=== PATIENT | male | born 1995 | race Caucasian/White ===

== ENCOUNTER 2019-04-25 09:26 | Emergency (ER) | payer OTHER ==
[2019-04-25] MEDS ORDERED: Morphine 2 MG/ML Syringe IVPUSH ONE (09:37)
[2019-04-25] MEDS ORDERED: Sodium Chloride 0.9% 1,000 ML IV ONE (09:37)
[2019-04-25] MEDS ORDERED: ceFAZolin 1 GM in Premix Bag 1 BAG IV ONE (09:37)
[2019-04-25] MEDS ORDERED: Ondansetron 4 MG/2 ML SDV IVPUSH ONE (09:37)
[2019-04-25] MEDS ORDERED: Diphtheria,Pertussis(Acell),Tetanus Vaccine 0.5 ML Syringe IM ONE (09:45)
--- NOTE | 2019-04-25 09:47 | EDM.PDOC ---
ED HPI GENERAL MEDICAL PROBLEM - General Chief Complaint: Upper Extremity Injury/Pain Stated Complaint: CUT FINGER OFF Time Seen by Provider: 04/25/19 09:33 - History of Present Illness INITIAL COMMENTS - FREE TEXT/NARRATIVE: HISTORY AND PHYSICAL: History of present illness: Patient 24-year-old white male who presents status post right hand injury in which he sustained an amputation to the distal third of the second digit of his right hand this occurred at work patient denies up-to-date tetanus Review of systems: As per history of present illness and below otherwise all systems reviewed and negative. Past medical history: As per history of present illness and as reviewed below otherwise noncontributory. Surgical history: As per history of present illness and as reviewed below otherwise noncontributory. Social history: No reported history of drug or alcohol abuse. Family history: As per history of present illness and as reviewed below otherwise noncontributory. Physical exam: HEENT: Atraumatic, normocephalic, pupils reactive, negative for conjunctival pallor or scleral icterus, mucous membranes moist, throat clear, neck supple, nontender, trachea midline. Lungs: Clear to auscultation, breath sounds equal bilaterally, chest nontender. Heart: S1S2, regular, negative for clicks, rubs, or JVD. Abdomen: Soft, nondistended, nontender. Negative for masses or hepatosplenomegaly. Negative for costovertebral tenderness. Pelvis: Stable nontender. Genitourinary: Deferred. Rectal: Deferred. Extremities: Patient has an amputation of the distal third of the second digit of his right hand digit was wrapped with moist gauze and placed on ice there is good hemostasis. Neuro: Awake, alert, oriented. Cranial nerves II through XII unremarkable. Cerebellum unremarkable. Motor and sensory unremarkable throughout. Exam nonfocal. Diagnostics: X-ray right hand Therapeutics: Saline 1 L bolus Ancef 2 g IV morphine sulfate 2 mg IV Zofran 4 mg IV wound was irrigated with copious amounts 0.9 normal saline and dressed with wet-to-dry dressing Impression: #1 right hand injury (partial amputation second digit right hand) Definitive disposition and diagnosis as appropriate pending reevaluation and review of above. RIGHT INDEX FINGER Pain Score (Numeric/FACES): 5 Past Medical History - Infectious Disease History Infectious Disease History: Reports: None - Past Surgical History GI Surgical History: Reports: Appendectomy Social & Family History - Family History Family Medical History: Noncontributory - Tobacco Use Smoking Status *Q: Former Smoker Years of Tobacco use: 6 Packs/Tins Daily: 1 Used Tobacco, but Quit: Yes Month/Year Tobacco Last Used: 10 days - Caffeine Use Caffeine Use: Reports: Coffee - Recreational Drug Use Recreational Drug Use: No Review of Systems - Review of Systems Review Of Systems: ROS reveals no pertinent complaints other than HPI. ED EXAM, GENERAL - Physical Exam Exam: See Below (Dictation) Course - Vital Signs Last Recorded V/S: Last Vital Signs Temp 35.9 C 04/25/19 09:34 Pulse 77 04/25/19 09:34 Resp 16 04/25/19 09:34 BP 128/81 04/25/19 09:34 Pulse Ox 98 04/25/19 09:34 - Orders/Labs/Meds Orders: Active Orders 24 hr Category Date Time Status Fingers Second Digit Rt F6 [CR] Stat Exams 04/25/19 09:37 Ordered Sodium Chloride 0.9% [Normal Saline] 1,000 ml Med 04/25/19 09:37 Active IV STAT ceFAZolin [Ancef] 1 gm Med 04/25/19 09:37 Active Premix Bag 1 bag IV ONETIME Medication Orders Cefazolin Sodium/Dextrose 1 gm (/ Premix) 50 mls @ 100 mls/hr IV ONETIME ONE Stop: 04/25/19 10:06 Sodium Chloride (Normal Saline) 1,000 mls @ 999 mls/hr IV STAT ONE Stop: 04/25/19 10:37 Meds: Medications Generic Name Dose Route Start Last Admin Trade Name Freq PRN Reason Stop Dose Admin Cefazolin Sodium/Dextrose 1 gm 50 mls @ 100 mls/hr 04/25/19 09:37 / Premix IV 04/25/19 10:06 ONETIME ONE Sodium Chloride 1,000 mls @ 999 mls/hr 04/25/19 09:37 Normal Saline IV 04/25/19 10:37 STAT ONE Discontinued Medications Generic Name Dose Route Start Last Admin Trade Name Freq PRN Reason Stop Dose Admin Morphine Sulfate 2 mg 04/25/19 09:37 Morphine IVPUSH 04/25/19 09:38 ONETIME ONE Ondansetron HCl 4 mg 04/25/19 09:37 Zofran IVPUSH 04/25/19 09:38 ONETIME ONE Departure - Departure Time of Disposition: 09:46 Disposition: DC/Tfer to Acute Hospital 02 Condition: Good Clinical Impression: Hand injury - Discharge Information - My Orders Last 24 Hours: My Active Orders 04/25/19 09:37 Fingers Second Digit Rt F6 [CR] Stat Sodium Chloride 0.9% [Normal Saline] 1,000 ml IV STAT ceFAZolin [Ancef] 1 gm Premix Bag 1 bag IV ONETIME - Assessment/Plan Last 24 Hours: My Active Orders 04/25/19 09:37 Fingers Second Digit Rt F6 [CR] Stat Sodium Chloride 0.9% [Normal Saline] 1,000 ml IV STAT ceFAZolin [Ancef] 1 gm Premix Bag 1 bag IV ONETIME
[2019-04-25] MEDS ORDERED: Bupivacaine 0.5% 10 ML SDV ONE (09:48)
[2019-04-25] MEDS ORDERED: Bupivacaine 0.5% 10 ML SDV INJECT ONE (10:19)
--- NOTE | 2019-04-25 10:34 | CR ---
INDICATION: Injury. Pain TECHNIQUE: Three view right hand COMPARISON: None FINDINGS: There is no acute traumatic amputation of the distal right 2nd finger at the level of the distal aspect of the middle phalanx. No retained soft tissue foreign body or other osseous abnormality is identified. IMPRESSION: Acute traumatic amputation of the right 2nd finger at the level of the distal aspect of the middle phalanx. Dictated by Petr Phillips MD @ Apr 25 2019 10:26AM Signed by Dr. Petr Phillips @ Apr 25 2019 10:32AM
== END 2019-04-25 10:35 ==
LOC: MW.ED 09:26
DX: S68.120A Partial traumatic metacarpophalangeal amputation of right index finger, initial encounter (principal); Z23 Encounter for immunization; Z87.891 Personal history of nicotine dependence; W31.89XA Contact with other specified machinery, initial encounter; Y99.0 Civilian activity done for income or pay
CPT/HCPCS: 73140; 90471; 90715; 96365; 96375; 99284; J0690; J2270; J2405; J3490; J7040; 99283